=== PATIENT | female | born 1985 | race African-American/Black ===

== ENCOUNTER 2016-11-18 06:38 | Emergency (ER) | payer SELFPAY ==
[2016-11-18 06:42] VITALS: BP 136/75; BMI 45.1
--- NOTE | 2016-11-18 07:10 | DR.GENAD ---
HPI - PCP Primary Care Physician: NFD - Complaint/Symptoms Chief Complaint Doctors Comments: History as stated. Chief Complaint:: PATIENT STATED THAT SHE HAS A ABCESS ON HER GENITALS. PATIENT STATED THAT IS HAS BEEN THERE FOR 3 DAYS. - Source History Provided: Patient - Mode of Arrival Mode of Arrival: Ambulatory - Timing Onset of Chief Complaint: 11/15/16 PMH - PMH Past Medical History: No Past Surgical History: Yes Surgical History: - Family History History of Family Medical Conditions: No - Social History Does patient currently use any type of tobacco product: Yes Have you used tobacco products in the last 12 months: Yes Type of Tobacco Use: Cigarettes Does any household member use tobacco: No Alcohol Use: None Do you use any recreational Drugs:: No Lives With: Family Lives Where: Home - infectious screening In the last 2 months have you had wt loss of >10#?: NO Have you had fever, night sweats or hemotysis?: No Have you traveled outside the country in the last 6 months?: No Isolation: Standard ROS - Review of Systems Constitutional: No Symptoms Reported Eyes: No Symptoms Reported ENTM: No Symptoms Reported Respiratoy: No Symptoms Reported Cardiovascular: No Symptoms Reported Gastrointestinal/Abdominal: No Symptoms Reported Genitourinary: No Symptoms Reported Neurological: No Symptoms Reported Musculoskeletal: No Symptoms Reported Integumentary: No Symptoms Reported Hematologic/Lymphatic: No Symptoms Reported Endocrine: No Symptoms Reported Psychiatric: No Symptoms Reported All Other Systems: Reviewed and Negative PE - Vital Signs Vitals: Temperature 98.5 F Pulse Rate 81 Respiratory Rate 20 Blood Pressure 136/75 O2 Sat by Pulse Oximetry 98 - General Limitations: No Limitations General Appearance: Alert, In No Apparent Distress - Head Head Exam: Normal Inspection, Atraumatic - Eyes Eye exam: Normal Appearance, PERRL, EOMI - ENT ENT Exam: Normal Exam External Ear Exam: Normal External Inspection TM/Canal Exam: Bilateral Normal Nose Exam: Normal Nose Exam Mouth Exam: Normal Inspection Throat Exam: Normal Inspection - Neck Neck Exam: Normal Inspection, Full ROM - Chest Chest Inspection: Normal Inspection - Respiratory Respiratory Exam: Normal Lung Sounds Bilat Respiratory Exam: Bilateral Clear to Auscultation - Cardiovascular Cardiovascular Exam: Regular Rate - Abdominal Exam Abdominal Exam: Normal Inspection Abdominal Tenderness: negative: RUQ, RLQ, LUQ, LLQ, Epigastrium, Suprapubic, Diffuse, Mild, Moderate, Severe, Other - Extremities Extremities Exam: Normal Inspection, Full ROM - Back Back Exam: Normal Inspection, Full ROM - Neurologic Neurological Exam: Alert, Oriented X3, CN II-XII Intact - Psychiatric Psychiatric Exam: Normal Affect - Skin Skin Exam: Warm, Dry, Intact - Other Exam Other Exam: Genitalia: left inferior labial fold a soft non-fluctuant mass c/w a cyst - Diagnosis Discharge Problem: Bartholin cyst - Discharge Plan Condition: Stable - Follow ups/Referrals Follow ups/Referrals: NFD,None [Primary Care Provider] - 3 days - Instructions
[2016-11-18] MEDS ORDERED: NORCO 7.5/325 MG TAB PO ONE (07:17)
[2016-11-18] MEDS ORDERED: NORCO 7.5/325 MG TAB ONE (07:18)
== END 2016-11-18 07:29 | disposition home or self-care (01) ==
LOC: ER 06:47
DX: N75.0 Cyst of Bartholin's gland (principal)
CPT/HCPCS: 99282

== ENCOUNTER 2017-01-25 12:10 | Emergency (ER) | payer SELFPAY ==
[2017-01-25 12:15] VITALS: BP 146/85; BMI 43.9
--- NOTE | 2017-01-25 12:44 | DR.GENAD ---
HPI - PCP Primary Care Physician: NFD - Complaint/Symptoms Chief Complaint Doctors Comments: Patient admits to stomach pain, vomitng and constipation since today. Last week presented with same but states today that she has costipation. Chief Complaint:: PT. C/O NAUSEA/VOMITING, CONSTIPATION, AND ABDOMINAL PAIN. - Source History Provided: Patient - Mode of Arrival Mode of Arrival: Ambulatory - Timing Onset of Chief Complaint: 01/25/17 PMH - PMH Past Medical History: No Past Surgical History: Yes Surgical History: - Family History History of Family Medical Conditions: Yes Family Medical History: Diabetes Mellitus, Cancer, [place], Coronary Artery Disease, Hypertension - Social History Does patient currently use any type of tobacco product: Yes Have you used tobacco products in the last 12 months: Yes Type of Tobacco Use: Cigarettes Does any household member use tobacco: No Alcohol Use: None Do you use any recreational Drugs:: No Lives With: Mom Lives Where: Home - infectious screening In the last 2 months have you had wt loss of >10#?: NO Have you had fever, night sweats or hemotysis?: No Have you traveled outside the country in the last 6 months?: No Isolation: Standard ROS - Review of Systems Eyes: No Symptoms Reported ENTM: No Symptoms Reported Respiratoy: No Symptoms Reported Cardiovascular: No Symptoms Reported Gastrointestinal/Abdominal: No Symptoms Reported Genitourinary: No Symptoms Reported Neurological: No Symptoms Reported Musculoskeletal: No Symptoms Reported Integumentary: No Symptoms Reported Hematologic/Lymphatic: No Symptoms Reported Endocrine: No Symptoms Reported Psychiatric: No Symptoms Reported All Other Systems: Reviewed and Negative PE - Vital Signs Vitals: Temperature 98.2 F Pulse Rate 74 Respiratory Rate 17 Blood Pressure 146/85 O2 Sat by Pulse Oximetry 99 - General General Appearance: Alert, In No Apparent Distress - Head Head Exam: Normal Inspection, Atraumatic - Eyes Eye exam: Normal Appearance, PERRL, EOMI - ENT ENT Exam: Normal Exam External Ear Exam: Normal External Inspection TM/Canal Exam: Bilateral Normal Nose Exam: Normal Nose Exam Mouth Exam: Normal Inspection Throat Exam: Normal Inspection - Neck Neck Exam: Normal Inspection - Chest Chest Inspection: Normal Inspection - Respiratory Respiratory Exam: Normal Lung Sounds Bilat Respiratory Exam: Bilateral Clear to Auscultation - Cardiovascular Cardiovascular Exam: Regular Rate, Normal Rhythm - Abdominal Exam Abdominal Exam: Normal Inspection Abdominal Tenderness: negative: RUQ, RLQ, LUQ, LLQ, Epigastrium, Suprapubic, Diffuse, Mild, Moderate, Severe, Other - Extremities Extremities Exam: Normal Inspection - Back Back Exam: Normal Inspection - Neurologic Neurological Exam: Alert, Oriented X3, CN II-XII Intact - Psychiatric Psychiatric Exam: Normal Affect, Normal Mood - Skin Skin Exam: Warm, Dry, Intact ROR - Labs Reviewed Result Diagrams: 01/25/17 13:06 Laboratory: WBC 5.8 X10^3/uL (3.6-10.0) 01/25/17 13:06 RBC 3.87 X10^6/uL (3.5-5.4) 01/25/17 13:06 Hgb 11.9 g/dL (12.0-16.0) L 01/25/17 13:06 Hct 35.6 % (36.0-47.0) L 01/25/17 13:06 MCV 92.0 fL (80.0-100.0) 01/25/17 13:06 MCH 30.8 pg (27.0-34.0) 01/25/17 13:06 MCHC 33.5 g/dL (33.0-35.0) 01/25/17 13:06 RDW 13.4 % (11.6-16.5) 01/25/17 13:06 Plt Count 292 X10^3/uL (150.0-450.0) 01/25/17 13:06 MPV 8.1 fL (7.4-11.0) 01/25/17 13:06 Neut % 66.2 % (42.0-75.0) 01/25/17 13:06 Lymph % 28.0 % (21.0-51.0) 01/25/17 13:06 [place] % 4.1 % (0.0-13.0) 01/25/17 13:06 Eos % 1.1 % (0.9-2.9) 01/25/17 13:06 Baso % 0.6 % (0.2-1.0) 01/25/17 13:06 Neut # 3.9 x10^3/uL (2.2-4.8) 01/25/17 13:06 Lymph # 1.6 X10^3/uL (1.3-2.9) 01/25/17 13:06 [place] # 0.2 x10^3/uL (0.3-0.8) L 01/25/17 13:06 Eos # 0.1 x10^3/uL (0.0-0.2) 01/25/17 13:06 Baso # 0.0 X10^3/uL (0.0-0.1) 01/25/17 13:06 Absolute Nucleated RBC 0.0 /100WBC 01/25/17 13:06 Specimen Type Clean catch urine 01/25/17 13:13 Urine Color Dark yellow (YELLOW) 01/25/17 13:13 Urine Appearance Slightly hazy (CLEAR) 01/25/17 13:13 Urine pH 7.0 (5.0 - 8.0) 01/25/17 13:13 Ur Specific [place] 1.010 (1.000-1.030) 01/25/17 13:13 Urine Protein 1+ (NEGATIVE) 01/25/17 13:13 Urine Glucose (UA) Negative (NEGATIVE) 01/25/17 13:13 Urine Ketones Negative (NEGATIVE) 01/25/17 13:13 Urine Occult Blood 2+ (NEGATIVE) 01/25/17 13:13 Urine Nitrite Negative (NEGATIVE) 01/25/17 13:13 Urine Bilirubin Negative (NEGATIVE) 01/25/17 13:13 Urine Urobilinogen 1+ (NORMAL) 01/25/17 13:13 Ur Leukocyte Esterase 1+ (NEGATIVE) 01/25/17 13:13 Urine RBC 3-6 /HPF (NEGATIVE) 01/25/17 13:13 Urine WBC 2-4 /HPF (NEGATIVE) 01/25/17 13:13 Ur Squamous Epith Cells Numerous /HPF (NEGATIVE) 01/25/17 13:13 Amorphous Sediment Trace /HPF (NEGATIVE) 01/25/17 13:13 Urine Bacteria 1+ /HPF (NEGATIVE) 01/25/17 13:13 Urine Mucus Many /HPF (NEGATIVE) 01/25/17 13:13 Ur Culture Indicated? No/not indicated 01/25/17 13:13 - Diagnosis Discharge Problem: Gastroenteritis - Discharge Plan Condition: Stable - Follow ups/Referrals Follow ups/Referrals: NFD,None [Primary Care Provider] - 3 days - Instructions
[2017-01-25] MEDS ORDERED: ZOFRAN INJ 4 MG VIAL IM ONE (12:45)
[2017-01-25] MEDS ORDERED: ZOFRAN INJ 4 MG VIAL ONE (12:51)
[2017-01-25 13:15] LABS: BASOPHILS % (AUTO) 0.6 % (0.2-1.0); EOSINOPHILS # (AUTO) 0.1 x10^3/uL (0.0-0.2); EOSINOPHILS % (AUTO) 1.1 % (0.9-2.9); HEMATOCRIT 35.6 % (36.0-47.0); HEMOGLOBIN 11.9 g/dL (12.0-16.0); LYMPHOCYTES # (AUTO) 1.6 X10^3/uL (1.3-2.9); MEAN CORPUSCULAR HEMOGLOBIN 30.8 pg (27.0-34.0); MEAN CORPUSCULAR HGB CONC 33.5 g/dL (33.0-35.0); MEAN PLATELET VOLUME 8.1 fL (7.4-11.0); MONOCYTES # (AUTO) 0.2 x10^3/uL (0.3-0.8); MONOCYTES % (AUTO) 4.1 % (0.0-13.0); NEUTROPHILS # (AUTO) 3.9 x10^3/uL (2.2-4.8); NEUTROPHILS % (AUTO) 66.2 % (42.0-75.0); PLATELET COUNT 292 X10^3/uL (150.0-450.0); RED BLOOD COUNT 3.87 X10^6/uL (3.5-5.4); RED CELL DISTRIBUTION WIDTH 13.4 % (11.6-16.5); WHITE BLOOD COUNT 5.8 X10^3/uL (3.6-10.0)
[2017-01-25 13:23] LABS: BILIRUBIN,URINE NEGATIVE (NEGATIVE); BLOOD/HEMOGLOBIN,URINE 2+ (NEGATIVE); GLUCOSE, URINE NEGATIVE (NEGATIVE); KETONES,URINE NEGATIVE (NEGATIVE); LEUKOCYTE ESTERASE ,URINE 1+ (NEGATIVE); NITRITES,URINE NEGATIVE (NEGATIVE); PROTEIN,URINE 1+ (NEGATIVE); UROBILINOGEN,URINE 1+ (NORMAL)
--- NOTE | 2017-01-25 13:28 | RAD ---
HISTORY: Nausea Study: Frontal view of the chest, flat and upright views of the abdomen Comparison: None. Findings: Cardiomediastinal silhouette is normal in size. No focal consolidations, pleural effusions or pneumo thorax. Osseous structures are without acute abnormality. Flat and upright views of the abdomen demonstrates a normal bowel gas pattern. No free air. No abno rmal calcifications or abnormal soft tissue shadows. No acute bony abnormalities. IMPRESSION: 1. No acute cardiopulmonary disease. 2. No evidence for acute abdominal pathology. Reported By:
[2017-01-25 13:34] LABS: AMORPHOUS SEDIMENT,UR TRACE /HPF (NEGATIVE); APPEARANCE,URINE SLIGHTLY HAZY (CLEAR); BACTERIA,URINE 1+ /HPF (NEGATIVE); COLOR,URINE DARK YELLOW (YELLOW); MUCUS,URINE MANY /HPF (NEGATIVE); SQUAMOUS EPITHELIAL CELL,UR NUMEROUS /HPF (NEGATIVE)
[2017-01-25] MEDS ORDERED: MORPHINE SULFATE INJ 4 MG IVP ONE (13:57)
== END 2017-01-25 13:52 | disposition home or self-care (01) ==
LOC: ER 12:25
DX: K52.89 Other specified noninfective gastroenteritis and colitis (principal)
CPT/HCPCS: 36415; 74022; 81001; 85025; 96372; 99283; J2405